=== PATIENT | male | born 1950 | race Caucasian/White ===

== ENCOUNTER 2017-07-23 13:22 | Inpatient (IN) ==
[2017-07-23] MEDS ORDERED: SODIUM CHLORIDE 0.9% 1,000 ML IV STA ×2 (14:12→19:50)
[2017-07-23 15:20] LABS: Basophils % 0.1 % (0.0-0.8); Hematocrit 39.3 VOL% (42.0-52.0); Hemoglobin 13.1 GM/DL (14.0-18.0); Immature Granulocytes % 0.7 %; Immature Granulocytes Absolute 0.11 #; Lymphocytes # 0.4 10*3/uL (1.4-4.0); Lymphocytes % 2.4 % (21.2-54.2); Mean Corpuscular HGB Conc 33.3 GM/DL (32-36); Mean Corpuscular Hemoglobin 29 PG (27-34); Mean Platelet Volume 10.5 FL (9.6-12.0); Monocytes # 0.8 10*3/uL (0.11-0.8); Monocytes % 4.9 % (1.7-12.7); Neutrophils # 14.9 10*3/uL (1.4-7.4); Neutrophils % 91.9 % (38.7-73.9); Platelet Count 324 T/CUMM (130-400); Red Blood Count 4.57 MC/CUMM (3.8-5.5); Red Cell Distribution Width 14.6 % (9.3-17.3); White Blood Count 16.2 T/CUMM (4-12)
[2017-07-23 15:33] LABS: INR 1.4; PT Patient Result 14.4 SECS; Partial Thromboplastin Time 29.7 SECS (0-40)
[2017-07-23 15:40] LABS: Albumin 3.6 G/DL (3.4-5.0); Bilirubin,Total 0.6 MG/DL (0.2-1.0); Calcium 8.6 MG/DL (8.5-10.1); Osmolality,Calculated 284.3 MOS/KG (273-304); Potassium 3.3 MMOL/L (3.5-5.1)
[2017-07-23 15:41] LABS: Lactic Acid 2.7 MMOL/L (0.4-2.0); Troponin I Only 0.244 NG/ML (0.00-0.045)
[2017-07-23 15:43] LABS: Giant Platelets Few; Hypochromasia 1+; Lymphocytes 1 % (20-55); Ovalocytes Slight; Platelet Estimate Adequate; Segmented Neutrophils 94 % (50-85); Total Cells Counted 100
[2017-07-23 18:52] LABS: Apearance,Urine CLEAR (Clear); Bacteria,Urine Occasional /HPF (Few); Bilirubin,Urine Negative (Negative); Blood, Urine Large mg/dL (Negative); Glucose,Urine (UA) Negative (Negative); Ketones,Urine 80 mg/dL (Negative); Mucus,Urine Occasional /LPF (Occasional); Nitrite,Urine Negative (Negative); Protein,Urine 30 MG/DL; RBC,Urine 1 /HPF (0-4); Sperm,Urine Occasional /HPF (Negative); Urine Color Yellow (Yellow); Urine Specific Gravity 1.023 (1.001-1.035); Urine Urobilinogen < 2.0 EU/DL (0.2-1.0); WBC,Urine 1 /HPF (0-6)
[2017-07-23 19:01] LABS: Barbiturates Screen,Urine Negative (Negative); Benzodiazepines Screen,Urine Positive (Negative); Cannabinoid Screen,Urine Negative (Negative); Opiate Screen,Urine Negative (Negative); Phencyclidine Screen,Urine Negative (Negative)
[2017-07-23] MEDS ORDERED: ONDANSETRON 4 MG/2 ML VIAL IV PRN (20:09)
[2017-07-23] MEDS ORDERED: ACETAMINOPHEN 325 MG TABLET PO PRN (20:09)
[2017-07-23] MEDS ORDERED: ZIPRASIDONE 20 MG/1 ML VIAL IM STA (20:32)
[2017-07-23] MEDS ORDERED: ZIPRASIDONE 20 MG/1 ML VIAL IM ONE (20:38)
[2017-07-23 20:47] LABS: CKMB % 0.5 %
[2017-07-23 20:48] LABS: Troponin I Only 0.222 NG/ML (0.00-0.045)
[2017-07-23] MEDS ORDERED: LORazepam 2 MG/1 ML VIAL IM PRN (21:22)
[2017-07-23] MEDS ORDERED: hydrALAZINE 20 MG/1 ML VIAL IM ONE (21:30)
[2017-07-23] MEDS: DOCUSATE SODIUM 100 MG CAPSULE PO SCH (21:35)
[2017-07-23] MEDS: CLORAZEPATE 7.5 MG TABLET PO SCH (21:35)
[2017-07-23] MEDS: DEXTROSE 5% NACL 0.9% 1,000 ML IV SCH (21:39)
[2017-07-23] MEDS ORDERED: LORazepam 2 MG/1 ML VIAL IV PRN (22:00)
[2017-07-23] MEDS ORDERED: hydrALAZINE 20 MG/1 ML VIAL IV ONE (22:00)
[2017-07-23 22:49] LABS: Apearance,Urine CLEAR (Clear); Bilirubin,Urine Negative (Negative); Blood, Urine Large mg/dL (Negative); Glucose,Urine (UA) Negative (Negative); Granular Casts,Urine 1 /LPF (0-1); Hyaline Casts,Urine 4 /LPF (0-3); Ketones,Urine 80 mg/dL (Negative); Mucus,Urine Occasional /LPF (Occasional); Nitrite,Urine Negative (Negative); Protein,Urine 30 MG/DL; RBC,Urine 48 /HPF (0-4); Urine Color Yellow (Yellow); Urine Specific Gravity 1.024 (1.001-1.035); Urine Urobilinogen < 2.0 EU/DL (0.2-1.0); WBC,Urine 3 /HPF (0-6)
[2017-07-24 00:28] LABS: CKMB % 0.4 %
[2017-07-24 00:34] LABS: Troponin I Only 0.239 NG/ML (0.00-0.045)
[2017-07-24 02:06] LABS: Basophils % 0.1 % (0.0-0.8); Hematocrit 34.9 VOL% (42.0-52.0); Hemoglobin 11.7 GM/DL (14.0-18.0); Immature Granulocytes % 0.4 %; Immature Granulocytes Absolute 0.05 #; Lymphocytes # 0.9 10*3/uL (1.4-4.0); Lymphocytes % 7.2 % (21.2-54.2); Mean Corpuscular HGB Conc 33.5 GM/DL (32-36); Mean Corpuscular Hemoglobin 28 PG (27-34); Mean Corpuscular Volume 84.5 FL (87-102); Mean Platelet Volume 10.1 FL (9.6-12.0); Monocytes # 0.7 10*3/uL (0.11-0.8); Neutrophils # 10.7 10*3/uL (1.4-7.4); Neutrophils % 86.3 % (38.7-73.9); Platelet Count 251 T/CUMM (130-400); Red Blood Count 4.13 MC/CUMM (3.8-5.5); Red Cell Distribution Width 14.6 % (9.3-17.3); White Blood Count 12.4 T/CUMM (4-12)
[2017-07-24 02:24] LABS: Albumin 3.1 G/DL (3.4-5.0); Bilirubin,Total 0.4 MG/DL (0.2-1.0); Total Protein 5.6 G/DL (6.4-8.3)
[2017-07-24 02:25] LABS: Osmolality,Calculated 287.8 MOS/KG (273-304); Potassium 3.2 MMOL/L (3.5-5.1)
[2017-07-24 02:32] LABS: CKMB % 0.3 %
[2017-07-24 02:33] LABS: Troponin I Only 0.234 NG/ML (0.00-0.045)
[2017-07-24] MEDS: CLORAZEPATE 7.5 MG TABLET PO SCH ×2 (04:50→15:07)
[2017-07-24] MEDS: DEXTROSE 5% NACL 0.9% 1,000 ML IV SCH (05:44)
[2017-07-24] MEDS ORDERED: NITROGLYCERIN SL 0.4 MG TABLET SL PRN (08:15)
[2017-07-24] MEDS ORDERED: ZIPRASIDONE 20 MG/1 ML VIAL IM PRN (08:16)
[2017-07-24] MEDS: DOCUSATE SODIUM 100 MG CAPSULE PO SCH ×2 (08:59→22:09)
[2017-07-24] MEDS: PANTOPRAZOLE 40 MG TABLET PO SCH (08:59)
[2017-07-24] MEDS: CLOZAPINE 100 MG PO SCH ×2 (10:04→22:09)
[2017-07-24] MEDS: CLOZAPINE 25 MG PO SCH ×2 (10:04→22:09)
[2017-07-24] MEDS: DEXT 5% NACL 0.9% KCL 20 MEQ 20 MEQ/1,000 ML BAG IV SCH ×2 (10:07→18:58)
[2017-07-24] MEDS: ZINC OXIDE PASTE 113 GM TUBE TOP SCH ×2 (10:07→21:00)
[2017-07-24] MEDS ORDERED: CLORAZEPATE 7.5 MG TABLET PO PRN (20:20)
[2017-07-24] MEDS ORDERED: CLOZAPINE 50 MG PO SCH (21:00)
[2017-07-25] MEDS: DEXT 5% NACL 0.9% KCL 20 MEQ 20 MEQ/1,000 ML BAG IV SCH ×2 (02:09→10:40)
[2017-07-25 06:26] LABS: Hematocrit 34.9 VOL% (42.0-52.0); Hemoglobin 11.5 GM/DL (14.0-18.0); Immature Granulocytes % 0.4 %; Immature Granulocytes Absolute 0.03 #; Lymphocytes # 0.7 10*3/uL (1.4-4.0); Lymphocytes % 10.7 % (21.2-54.2); Mean Corpuscular Hemoglobin 29 PG (27-34); Mean Corpuscular Volume 86.4 FL (87-102); Mean Platelet Volume 10.2 FL (9.6-12.0); Monocytes # 0.4 10*3/uL (0.11-0.8); Monocytes % 5.9 % (1.7-12.7); Neutrophils # 5.7 10*3/uL (1.4-7.4); Platelet Count 219 T/CUMM (130-400); Red Blood Count 4.04 MC/CUMM (3.8-5.5); Red Cell Distribution Width 14.6 % (9.3-17.3); White Blood Count 6.9 T/CUMM (4-12)
[2017-07-25 06:35] LABS: Apearance,Urine CLEAR (Clear); Bilirubin,Urine Negative (Negative); Blood, Urine Moderate mg/dL (Negative); Glucose,Urine (UA) Negative (Negative); Ketones,Urine 5 mg/dL (Negative); Mucus,Urine Occasional /LPF (Occasional); Nitrite,Urine Negative (Negative); Protein,Urine Negative; RBC,Urine 14 /HPF (0-4); Urine Color Yellow (Yellow); Urine Specific Gravity 1.013 (1.001-1.035); WBC,Urine 3 /HPF (0-6)
[2017-07-25 06:58] LABS: Albumin 2.7 G/DL (3.4-5.0); Bilirubin,Total 0.8 MG/DL (0.2-1.0); Calcium 7.9 MG/DL (8.5-10.1); Osmolality,Calculated 295.1 MOS/KG (273-304); Potassium 3.2 MMOL/L (3.5-5.1); Total Protein 5.2 G/DL (6.4-8.3)
[2017-07-25] MEDS: PANTOPRAZOLE 40 MG TABLET PO SCH (08:48)
[2017-07-25] MEDS: ZINC OXIDE PASTE 113 GM TUBE TOP SCH (08:48)
[2017-07-25] MEDS: DOCUSATE SODIUM 100 MG CAPSULE PO SCH (08:48)
[2017-07-25] MEDS: CLOZAPINE 25 MG PO SCH (08:49)
[2017-07-25] MEDS: CLOZAPINE 100 MG PO SCH (08:49)
[2017-07-25] MEDS ORDERED: POTASSIUM CHLORIDE 10 MEQ TABLET PO SCH (09:00)
[2017-07-25 14:51] VITALS: BP 174/93
== END 2017-07-25 16:08 | DRG 885 ==
LOC: EDUNIT# → EDBD → N.ED 13:22 → N.EDINP 20:09 → N.CC 21:03
PROVIDERS: ADMIT Family Medicine; ATTEND Family Medicine

== ENCOUNTER 2019-02-23 14:32 | Inpatient (IN) ==
[2019-02-23] MEDS ORDERED: ONDANSETRON 4 MG/2 ML VIAL IV STA (15:07)
[2019-02-23] MEDS ORDERED: PANTOPRAZOLE 40 MG VIAL IV STA (15:07)
[2019-02-23] MEDS ORDERED: SODIUM CHLORIDE 0.9% 500 ML IV STA ×2 (15:07→15:31)
[2019-02-23 16:33] LABS: Basophils % 0.1 % (0.0-0.8); Hematocrit 28.3 VOL% (42.0-52.0); Hemoglobin 8.3 GM/DL (14.0-18.0); Immature Granulocytes % 1.5 %; Lymphocytes % 3.1 % (21.2-54.2); Mean Corpuscular HGB Conc 29.3 GM/DL (32-36); Mean Corpuscular Volume 77.7 FL (87-102); Mean Platelet Volume 9.4 FL (9.6-12.0); Monocytes % 6.1 % (1.7-12.7); Neutrophils % 89.2 % (38.7-73.9); Platelet Count 426 T/CUMM (130-400); Red Blood Count 3.64 MC/CUMM (3.8-5.5); Red Cell Distribution Width 19.6 % (9.3-17.3); White Blood Count 23.8 T/CUMM (4-12)
[2019-02-23 16:34] LABS: Immature Granulocytes Absolute 0.35 #; Lymphocytes # 0.7 10*3/uL (1.4-4.0)
[2019-02-23 16:45] LABS: Partial Thromboplastin Time 21.7 SECS (20.8-36.0)
[2019-02-23 17:00] LABS: Alanine Aminotransferase 24 U/L (16-61); Albumin 3.3 G/DL (3.4-5.0); Alkaline Phosphatase 73 U/L (45-117); Aspartate Amino Transferase 20 U/L (0-37); Bilirubin,Total < 0.39 MG/DL (0.2-1.0); Blood Urea Nitrogen 41 MG/DL (7-18); Calcium 7.9 MG/DL (8.5-10.1); Estimated Glom Filtration Rate 46 ML/MIN; Glucose 104 MG/DL (74-106); Osmolality,Calculated 288.4 MOS/KG (273-304); Total Protein 5.9 G/DL (6.4-8.3)
[2019-02-23 17:32] LABS: Apearance,Urine Slightly Hazy (Clear); Bacteria,Urine Occasional /HPF (Few); Bilirubin,Urine Negative (Negative); Blood, Urine Negative (Negative); Glucose,Urine (UA) Negative (Negative); Hyaline Casts,Urine 27 /LPF (0-3); Ketones,Urine 5 mg/dL (Negative); Mucus,Urine Occasional /LPF (Occasional); Nitrite,Urine Negative (Negative); Protein,Urine 30 MG/DL; RBC,Urine 3 /HPF (0-4); Squamous Epithelial Cell,Urine Occasional /HPF (0-10); Urine Color Yellow (Yellow); Urine Specific Gravity 1.019 (1.001-1.035); Urine Urobilinogen < 2.0 EU/DL (0.2-1.0); WBC,Urine 2 /HPF (0-6)
[2019-02-23] MEDS ORDERED: LACTATED RINGERS 1,000 ML IV ONE ×2 (17:32→18:15)
[2019-02-23] MEDS ORDERED: PIPERACILLIN/TAZOBACTAM 3,375 MG in SODIUM CHLORIDE 0.9% 100 ML IV STA (17:32)
[2019-02-23 17:44] LABS: Elliptocytes Few; Lymphocytes 1 % (20-55); Microcytosis 2+; Polychromasia Slight; Segmented Neutrophils 95 % (50-85); Sickle Cells Few; Tear Drop Cells Few; Total Cells Counted 100
[2019-02-23 17:45] LABS: Platelet Estimate Increased
[2019-02-23 17:48] LABS: Barbiturates Screen,Urine Negative (Negative); Benzodiazepines Screen,Urine Positive (Negative); Cannabinoid Screen,Urine Negative (Negative); Opiate Screen,Urine Negative (Negative); Phencyclidine Screen,Urine Negative (Negative)
[2019-02-23] MEDS ORDERED: PIPERACILLIN/TAZOBACTAM 3,375 MG VIAL IV ONE (18:10)
[2019-02-23] MEDS ORDERED: ACETAMINOPHEN 325 MG TABLET PO PRN (18:43)
[2019-02-23] MEDS ORDERED: ONDANSETRON 4 MG/2 ML VIAL IV PRN (18:43)
[2019-02-23] MEDS ORDERED: traMADol 50 MG TABLET PO PRN (18:43)
[2019-02-23] MEDS ORDERED: LACTULOSE 20 GM/30 ML UDCUP PO ONE (19:37)
[2019-02-23] MEDS: DOCUSATE SODIUM 100 MG CAPSULE PO SCH (20:49)
[2019-02-23] MEDS: SODIUM CHLORIDE 0.9% 1,000 ML IV SCH (20:50)
[2019-02-23] MEDS ORDERED: VANCOMYCIN INJ 1,000 MG in SODIUM CHLORIDE 0.9% 250 ML IV SCH (21:00)
[2019-02-23] MEDS ORDERED: INFLUENZA VIRUS VACCINE 0.5 ML SYRINGE IM ONE (21:03)
[2019-02-23] MEDS ORDERED: ZIPRASIDONE 20 MG/1 ML VIAL IM PRN (23:38)
[2019-02-24] MEDS: PIPERACILLIN/TAZOBACTAM 3,375 MG in SODIUM CHLORIDE 0.9% 100 ML IV SCH ×3 (02:22→20:55)
[2019-02-24 03:56] LABS: Basophils % 0.1 % (0.0-0.8); Hematocrit 25.8 VOL% (42.0-52.0); Hemoglobin 7.6 GM/DL (14.0-18.0); Immature Granulocytes % 0.6 %; Lymphocytes # 1.1 10*3/uL (1.4-4.0); Lymphocytes % 6.8 % (21.2-54.2); Mean Corpuscular HGB Conc 29.5 GM/DL (32-36); Mean Corpuscular Volume 77.9 FL (87-102); Mean Platelet Volume 9.7 FL (9.6-12.0); Neutrophils % 86.5 % (38.7-73.9); Platelet Count 414 T/CUMM (130-400); Red Blood Count 3.31 MC/CUMM (3.8-5.5); Red Cell Distribution Width 19.9 % (9.3-17.3)
[2019-02-24 04:10] LABS: Alanine Aminotransferase 20 U/L (16-61); Albumin 3.3 G/DL (3.4-5.0); Alkaline Phosphatase 67 U/L (45-117); Aspartate Amino Transferase 18 U/L (0-37); Bilirubin,Total < 0.39 MG/DL (0.2-1.0); Blood Urea Nitrogen 30 MG/DL (7-18); Calcium 7.7 MG/DL (8.5-10.1); Estimated Glom Filtration Rate 69 ML/MIN; Glucose 88 MG/DL (74-106); Osmolality,Calculated 283.4 MOS/KG (273-304); Total Protein 6.1 G/DL (6.4-8.3)
[2019-02-24] MEDS: SODIUM CHLORIDE 0.9% 1,000 ML IV SCH ×3 (06:12→22:53)
[2019-02-24] MEDS ORDERED: SODIUM CHLORIDE 0.9% 1,000 ML IV PRN (08:18)
[2019-02-24] MEDS ORDERED: NITROGLYCERIN SL 0.4 MG TABLET SL PRN (08:20)
[2019-02-24] MEDS: FERROUS SULFATE 325 MG TABLET PO SCH (08:58)
[2019-02-24] MEDS: DOCUSATE SODIUM 100 MG CAPSULE PO SCH ×2 (08:58→20:45)
[2019-02-24] MEDS: PANTOPRAZOLE 40 MG TABLET PO SCH (08:59)
[2019-02-24] MEDS: LACOSAMIDE 50 MG TABLET PO SCH ×2 (08:59→20:44)
[2019-02-24] MEDS: DIVALPROEX SPRINKLE 125 MG CAPSULE PO SCH ×2 (08:59→20:44)
[2019-02-24] MEDS ORDERED: CLOZAPINE 100 MG PO SCH (09:00)
[2019-02-24] MEDS: CLORAZEPATE 3.75 MG TABLET PO SCH ×3 (09:00→20:44)
[2019-02-24] MEDS: FOLIC ACID 1 MG TABLET PO SCH (09:06)
[2019-02-24] MEDS: CLOZAPINE PO SCH (11:40)
[2019-02-24] MEDS: VANCOMYCIN INJ 1,000 MG in SODIUM CHLORIDE 0.9% 250 ML IV SCH (12:35)
[2019-02-25] MEDS: VANCOMYCIN INJ 1,000 MG in SODIUM CHLORIDE 0.9% 250 ML IV SCH (01:45)
[2019-02-25 05:06] LABS: Basophils % 0.1 % (0.0-0.8); Hematocrit 27.6 VOL% (42.0-52.0); Hemoglobin 8.4 GM/DL (14.0-18.0); Immature Granulocytes % 0.5 %; Immature Granulocytes Absolute 0.06 #; Lymphocytes # 1.2 10*3/uL (1.4-4.0); Lymphocytes % 10.3 % (21.2-54.2); Mean Corpuscular HGB Conc 30.4 GM/DL (32-36); Mean Corpuscular Volume 80.5 FL (87-102); Mean Platelet Volume 9.4 FL (9.6-12.0); Monocytes % 5.9 % (1.7-12.7); Neutrophils % 83.2 % (38.7-73.9); Platelet Count 297 T/CUMM (130-400); Red Blood Count 3.43 MC/CUMM (3.8-5.5); Red Cell Distribution Width 20.1 % (9.3-17.3); White Blood Count 11.8 T/CUMM (4-12)
[2019-02-25] MEDS: PIPERACILLIN/TAZOBACTAM 3,375 MG in SODIUM CHLORIDE 0.9% 100 ML IV SCH (05:37)
[2019-02-25 05:41] LABS: Albumin 2.7 G/DL (3.4-5.0); Bilirubin,Total 0.7 MG/DL (0.2-1.0); Calcium 7.8 MG/DL (8.5-10.1); Ferritin 38.3 ng/ml (26-388); Osmolality,Calculated 275.5 MOS/KG (273-304); Risk Ratio 3.17; Thyroid Stimulating Hormone 0.479 uIU/ml (0.358-3.74); Total Protein 5.5 G/DL (6.4-8.3); VLDL CHOLESTEROL 17.6 MG/DL
[2019-02-25] MEDS ORDERED: LACTATED RINGERS 1,000 ML IV SCH (08:00)
[2019-02-25] MEDS ORDERED: PROPOFOL 200 MG/20 ML VIAL IV ONE (10:00)
[2019-02-25] MEDS ORDERED: LIDOCAINE 100 MG/5 ML SYRINGE ONE (10:00)
[2019-02-25] MEDS: LACOSAMIDE 50 MG TABLET PO SCH ×2 (10:04→22:03)
[2019-02-25] MEDS: LEVOFLOXACIN INJ 750 MG in PREMIX 1 EACH IV SCH (10:06)
[2019-02-25] MEDS: CLORAZEPATE 3.75 MG TABLET PO SCH ×3 (12:34→22:03)
[2019-02-25] MEDS: FOLIC ACID 1 MG TABLET PO SCH (14:46)
[2019-02-25] MEDS: FERROUS SULFATE 325 MG TABLET PO SCH (14:46)
[2019-02-25] MEDS: DIVALPROEX SPRINKLE 125 MG CAPSULE PO SCH ×2 (14:47→22:03)
[2019-02-25] MEDS: DOCUSATE SODIUM 100 MG CAPSULE PO SCH ×2 (14:47→22:03)
[2019-02-25] MEDS: SODIUM CHLORIDE 0.9% 1,000 ML IV SCH (14:48)
[2019-02-25] MEDS: CLOZAPINE PO SCH ×2 (14:48→22:04)
[2019-02-25] MEDS: PANTOPRAZOLE 40 MG TABLET PO SCH ×2 (14:58→22:03)
[2019-02-25] MEDS ORDERED: BISACODYL 5 MG TABLET PO ONE (15:00)
[2019-02-25] MEDS ORDERED: POLYETHYLENE GLYCOL POWDER 255 GM BOTTLE PO ONE (18:00)
[2019-02-26 04:20] LABS: Basophils % 0.1 % (0.0-0.8); Hematocrit 29.7 VOL% (42.0-52.0); Hemoglobin 9.3 GM/DL (14.0-18.0); Immature Granulocytes % 0.3 %; Immature Granulocytes Absolute 0.02 #; Lymphocytes % 12.6 % (21.2-54.2); Mean Corpuscular HGB Conc 31.3 GM/DL (32-36); Mean Corpuscular Volume 79.4 FL (87-102); Mean Platelet Volume 9.4 FL (9.6-12.0); Monocytes % 7.5 % (1.7-12.7); Neutrophils % 79.5 % (38.7-73.9); Platelet Count 270 T/CUMM (130-400); Red Blood Count 3.74 MC/CUMM (3.8-5.5); Red Cell Distribution Width 20.7 % (9.3-17.3); White Blood Count 7.9 T/CUMM (4-12)
[2019-02-26 04:34] LABS: Alanine Aminotransferase 13 U/L (16-61); Albumin 2.7 G/DL (3.4-5.0); Alkaline Phosphatase 59 U/L (45-117); Aspartate Amino Transferase 12 U/L (0-37); Bilirubin,Total < 0.39 MG/DL (0.2-1.0); Blood Urea Nitrogen 10 MG/DL (7-18); Calcium 7.9 MG/DL (8.5-10.1); Estimated Glom Filtration Rate 109 ML/MIN; Glucose 78 MG/DL (74-106); Osmolality,Calculated 270.8 MOS/KG (273-304); Total Protein 5.8 G/DL (6.4-8.3)
[2019-02-26] MEDS ORDERED: MAGNESIUM CITRATE 300 ML BOTTLE PO ONE (06:00)
[2019-02-26] MEDS: SODIUM CHLORIDE 0.9% 1,000 ML IV SCH ×2 (06:22→14:36)
[2019-02-26] MEDS ORDERED: LACTATED RINGERS 1,000 ML IV SCH (08:00)
[2019-02-26] MEDS: CLORAZEPATE 3.75 MG TABLET PO SCH ×3 (09:50→21:55)
[2019-02-26] MEDS: FOLIC ACID 1 MG TABLET PO SCH (09:50)
[2019-02-26] MEDS: DOCUSATE SODIUM 100 MG CAPSULE PO SCH ×2 (09:51→21:55)
[2019-02-26] MEDS: LACOSAMIDE 50 MG TABLET PO SCH ×2 (09:51→21:55)
[2019-02-26] MEDS: FERROUS SULFATE 325 MG TABLET PO SCH (09:51)
[2019-02-26] MEDS: PANTOPRAZOLE 40 MG TABLET PO SCH ×2 (09:51→21:55)
[2019-02-26] MEDS: DIVALPROEX SPRINKLE 125 MG CAPSULE PO SCH ×2 (09:51→21:55)
[2019-02-26] MEDS: CLOZAPINE PO SCH ×2 (09:52→21:55)
[2019-02-26] MEDS: LEVOFLOXACIN INJ 750 MG in PREMIX 1 EACH IV SCH (09:53)
[2019-02-26] MEDS ORDERED: POLYETHYLENE GLYCOL POWDER 255 GM BOTTLE PO ONE (11:00)
[2019-02-27] MEDS ORDERED: MAGNESIUM CITRATE 300 ML BOTTLE PO ONE (06:00)
[2019-02-27 08:12] LABS: Basophils % 0.3 % (0.0-0.8); Eosinophils % 0.3 % (0.00-10.9); Hematocrit 28.8 VOL% (42.0-52.0); Hemoglobin 8.9 GM/DL (14.0-18.0); Immature Granulocytes % 0.2 %; Immature Granulocytes Absolute 0.01 #; Lymphocytes # 1.1 10*3/uL (1.4-4.0); Lymphocytes % 18.2 % (21.2-54.2); Mean Corpuscular HGB Conc 30.9 GM/DL (32-36); Mean Corpuscular Volume 80.4 FL (87-102); Mean Platelet Volume 9.3 FL (9.6-12.0); Monocytes % 8.7 % (1.7-12.7); Neutrophils % 72.3 % (38.7-73.9); Platelet Count 283 T/CUMM (130-400); Red Blood Count 3.58 MC/CUMM (3.8-5.5); Red Cell Distribution Width 21.5 % (9.3-17.3); White Blood Count 6.2 T/CUMM (4-12)
[2019-02-27 08:16] LABS: INR 1.1; PT Patient Result 11.4 SECS (9.6-12.2)
[2019-02-27 08:29] LABS: Albumin 2.7 G/DL (3.4-5.0); Bilirubin,Total 0.6 MG/DL (0.2-1.0); Calcium 7.9 MG/DL (8.5-10.1); Osmolality,Calculated 276.4 MOS/KG (273-304); Total Protein 5.7 G/DL (6.4-8.3)
[2019-02-27] MEDS ORDERED: LIDOCAINE 2% 5 ML VIAL ONE (10:00)
[2019-02-27] MEDS ORDERED: PROPOFOL 200 MG/20 ML VIAL IV ONE (10:00)
[2019-02-27] MEDS: CLOZAPINE PO SCH (14:21)
[2019-02-27] MEDS: DOCUSATE SODIUM 100 MG CAPSULE PO SCH (14:21)
[2019-02-27] MEDS: FOLIC ACID 1 MG TABLET PO SCH (14:22)
[2019-02-27] MEDS: CLORAZEPATE 3.75 MG TABLET PO SCH ×2 (14:22→16:31)
[2019-02-27] MEDS: DIVALPROEX SPRINKLE 125 MG CAPSULE PO SCH (14:22)
[2019-02-27] MEDS: FERROUS SULFATE 325 MG TABLET PO SCH (14:22)
[2019-02-27] MEDS: PANTOPRAZOLE 40 MG TABLET PO SCH (14:22)
[2019-02-27] MEDS: LACOSAMIDE 50 MG TABLET PO SCH (14:23)
[2019-02-27] MEDS: LEVOFLOXACIN INJ 750 MG in PREMIX 1 EACH IV SCH (14:34)
[2019-02-27] MEDS: SODIUM CHLORIDE 0.9% 1,000 ML IV SCH ×2 (14:38→16:53)
[2019-02-27 15:59] VITALS: BP 139/67
[2019-02-28] MEDS ORDERED: LEVOFLOXACIN 500 MG TABLET PO SCH (09:00)
[2019-03-11] MEDS ORDERED: CYANOCOBALAMIN 1000 MCG/1 ML VIAL IM SCH (08:30)
== END 2019-02-27 16:52 | disposition home health service (06) | DRG 871 ==
LOC: EDUNIT# → EDBD → N.ED 14:32 → N.EDINP 18:43 → N.ICU 19:16 → N.2E 02-24 13:31
PROVIDERS: ADMIT Family Medicine; ATTEND Family Medicine
PROC: COLSIRP (2019-02-27 10:50)

== ENCOUNTER 2021-02-06 16:54 | Observation (INO) ==
[2021-02-06 20:15] LABS: Basophils % 0.4 % (0.0-0.8); Eosinophils % 0.1 % (0.00-10.9); Hematocrit 46.6 VOL% (42.0-52.0); Hemoglobin 15.3 GM/DL (14.0-18.0); Immature Granulocytes % 0.5 %; Immature Granulocytes Absolute 0.05 #; Lymphocytes # 1.2 10*3/uL (1.4-4.0); Lymphocytes % 11.9 % (21.2-54.2); Mean Corpuscular HGB Conc 32.8 GM/DL (32-36); Mean Corpuscular Volume 82.9 FL (87-102); Monocytes % 5.9 % (1.7-12.7); Neutrophils % 81.2 % (38.7-73.9); Platelet Count 262 T/CUMM (130-400); Red Blood Count 5.62 MC/CUMM (3.8-5.5); Red Cell Distribution Width 16.6 % (9.3-17.3); White Blood Count 9.8 T/CUMM (4-12)
[2021-02-06 20:42] LABS: Salicylate < 2.8 MG/DL (2.8-20)
[2021-02-06 20:43] LABS: Acetaminophen < 2.0 UG/ML (10-30)
[2021-02-06 21:36] LABS: Calcium 8.7 MG/DL (8.5-10.1); Potassium 3.6 MMOL/L (3.5-5.1); Sodium 136 MMOL/L (136-145)
[2021-02-06 21:37] LABS: Albumin 3.7 G/DL (3.4-5.0); Blood Urea Nitrogen 11 MG/DL (7-18); Carbon Dioxide 26 MMOL/L (21-32); Glucose 79 MG/DL (74-106)
[2021-02-06 21:48] LABS: Alanine Aminotransferase 9 U/L (16-61); Alkaline Phosphatase 115 U/L (45-117); Aspartate Amino Transferase 17 U/L (0-37); Estimated Glom Filtration Rate 85 ML/MIN; Total Protein 7.2 G/DL (6.4-8.2)
[2021-02-06 21:50] LABS: Thyroid Stimulating Hormone 0.776 uIU/ml (0.358-3.74)
[2021-02-06] MEDS ORDERED: ACETAMINOPHEN 325 MG TABLET PO PRN (22:25)
[2021-02-06] MEDS ORDERED: ONDANSETRON 4 MG/2 ML VIAL IV PRN (22:25)
[2021-02-06] MEDS ORDERED: LORazepam 2 MG/1 ML VIAL IV PRN (22:35)
[2021-02-06] MEDS ORDERED: LORazepam 2 MG/1 ML VIAL ONE (22:38)
[2021-02-06] MEDS: SODIUM CHLORIDE 0.9% 1,000 ML IV SCH (23:03)
[2021-02-07] MEDS ORDERED: NITROGLYCERIN SL 0.4 MG TABLET SL PRN (07:55)
[2021-02-07] MEDS ORDERED: FERROUS SULFATE 325 MG TABLET PO SCH (09:00)
[2021-02-07] MEDS ORDERED: PANTOPRAZOLE 40 MG TABLET PO SCH (09:00)
[2021-02-07] MEDS ORDERED: DOCUSATE SODIUM 100 MG CAPSULE PO SCH (09:00)
[2021-02-07] MEDS ORDERED: TAMSULOSIN 0.4 MG CAPSULE PO SCH (09:00)
[2021-02-07] MEDS ORDERED: DIVALPROEX ER 250 MG TABLET PO SCH (10:00)
[2021-02-07] MEDS ORDERED: CARBIDOPA/LEVODOPA 25-100 MG TABLET PO SCH (10:00)
[2021-02-07] MEDS: SODIUM CHLORIDE 0.9% 1,000 ML IV SCH (11:02)
[2021-02-07 16:09] VITALS: BP 122/67
[2021-02-07] MEDS ORDERED: CLOZAPINE 100MG TABLET PO SCH (21:00)
== END 2021-02-07 15:28 ==
LOC: EDUNIT# → EDBD → N.EDINP 16:54 → N.ED 16:54 → N.EDINP 02-07 15:28
PROVIDERS: ADMIT Family Medicine; ATTEND Family Medicine